=== PATIENT | male | born 1980 | race Caucasian/White ===

== ENCOUNTER → 2019-04-25 | Outpatient (CLI) | payer OTHER ==
[~2019-04-25] MED LIST: GADOTERATE 7.5 MMOL/15ML VIAL. IVP ONE; HYDROmorphone 2 MG/ML VIAL IV PRN; IV RINGERS,LACTATED 1000ML 1,000 ML IV SCH; MIDAZOLAM HCL/PF 2 MG/2 ML VIAL. ONE; MORPHINE SULFATE 2 MG/ML VIAL. IV PRN; ONDANSETRON PF 4 MG/2 ML VIAL. IV PRN; PROCHLORPERAZINE 10 MG/2 ML VIAL. IV PRN; PROPOFOL 50 ML IV ONE; fentaNYL PF VIAL 100 MCG/2 ML VIAL IV PRN; fentaNYL PF VIAL 100 MCG/2 ML VIAL ONE
[2019-04-25] MEDS: fentaNYL PF VIAL 100 MCG/2 ML VIAL IV PRN ×2 (12:49→13:54)
[2019-04-25 13:00] VITALS: BP 107/77
--- NOTE | 2019-04-25 13:16 | RAD ---
CERVICAL SPINE WO/W CONTRAST History: Muscle weakness. Technique: Multiplanar, multi sequential pre and postcontrast MR imaging was performed of the cervical spine. Contrast: 17 mL Dotarem. Comparison: None Findings: Postoperative changes anterior stabilization and interbody fusion C6-C7. Degenerative endplate edema C5-C6. T2/STIR hyperintense signal within the cervical spinal cord at the C5-C6 level due to adjacent spondylosis. No pathologic enhancement. C2-C3: No canal or neuroforaminal narrowing. Mild left facet arthropathy. C3-C4: Small posterior disc bulge. Uncovertebral and facet arthropathy, right greater than left. Moderate right and mild left neural foraminal narrowing. No canal narrowing. C4-C5: Small posterior disc bulge. Uncovertebral and facet arthropathy, left greater than right. Moderate bilateral neural foraminal narrowing. No canal narrowing. C5-C6: Large posterior disc extrusion contributing to severe canal narrowing and cord compression. Uncovertebral facet arthropathy. Moderate bilateral neural foraminal narrowing. C6-C7: Posterior osteophyte contributing to mild cord flattening. No canal narrowing. Uncovertebral facet arthropathy. Moderate left and mild right neural foraminal narrowing. C7-T1: No canal or neuroforaminal narrowing. Results discussed with Dr. Mcneal at 1:13 PM on 04/25/2019. Impression: 1. C5-C6 spondylosis with degenerative endplate edema and large disc extrusion contributing to severe canal narrowing and cord compression. 2. 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 3. Anterior stabilization and interbody fusion C6-C7. 4. Additional multilevel cervical spondylosis with multilevel neural foraminal narrowing most prominent C4-C5 and C5-C6. Electronically signed by: Kevin Sales DO (04/25/2019 1:13 PM) [id number]
== END | disposition home or self-care (01) ==
LOC: EDBD 11:15 → MRI 11:15 → MERGE 11:15
PROVIDERS: ATTEND Family Medicine
DX: M47.812 Spondylosis without myelopathy or radiculopathy, cervical region (principal); M48.02 Spinal stenosis, cervical region; M12.88 Other specific arthropathies, not elsewhere classified, other specified site; G95.29 Other cord compression
CPT/HCPCS: 72156; A9575; J2250; J2704; J3010